=== PATIENT | male | born 1970 | race Caucasian/White ===

== ENCOUNTER 2024-12-18 08:37 | Day surgery (SDC) | payer OTHER ==
[2024-12-17 07:40] VITALS: BMI 24.8
[2024-12-18] MEDS ORDERED: KETAMINE HCL 100 MG/ML - 5ML VIAL ONE (09:50)
[2024-12-18 10:49] VITALS: PULSE 67; RESP 16; TEMP 98.1
[2024-12-18 12:36] VITALS: BP 110/57
== END 2024-12-18 12:35 | disposition home or self-care (01) ==
LOC: FECT 08:37
PROVIDERS: ATTEND Student in an Organized Health Care Education/Training Program
PROC: GZB4ZZZ Other Electroconvulsive Therapy (ICD-10-PCS; principal; 2024-12-18 10:05)
DX: F33.9 Major depressive disorder, recurrent, unspecified (principal)
CPT/HCPCS: 90870; 94760

== ENCOUNTER 2024-12-23 12:00 | Day surgery (SDC) | payer OTHER ==
[2024-12-18 10:54] VITALS: BMI 24.8
[~2024-12-23 12:00] MED LIST: LACTATED RINGERS SOLUTION 1,000 ML IV SCH; ONDANSETRON 4 MG/2 ML VIAL IVPUSH PRN
[2024-12-23] MEDS ORDERED: KETAMINE HCL 100 MG/ML - 5ML VIAL ONE (13:03)
[2024-12-23] MEDS ORDERED: SUCCINYLCHOLINE CHLORIDE 200 MG/10 ML SYRINGE ONE (13:07)
[2024-12-23 13:55] VITALS: PULSE 65; RESP 18; TEMP 97.4
[2024-12-23 14:16] VITALS: BP 124/67
== END 2024-12-23 14:22 | disposition home or self-care (01) ==
LOC: FECT 12:00
PROVIDERS: ATTEND Student in an Organized Health Care Education/Training Program
PROC: GZB4ZZZ Other Electroconvulsive Therapy (ICD-10-PCS; principal; 2024-12-23 13:14)
DX: F33.2 Major depressive disorder, recurrent severe without psychotic features (principal)
CPT/HCPCS: 90870; 94760